=== PATIENT | male | born 1980 | race African-American/Black ===

== ENCOUNTER 2016-08-29 17:14 | Emergency (ER) | payer OTHER ==
[~2016-08-29] VITALS: Ht 177.8 cm; Wt 85.0 kg
[~2016-08-29 17:14] MED LIST: KEPP500 PO; PHEN100C4 PO
[2016-08-29] MEDS ORDERED: LEVETIRACETAM 1,000 MG in SODIUM CHLORIDE 0.9% 100 ML IV ONE (18:30)
[2016-08-29 18:53] LABS: CLARITY URINE CLEAR (CLEAR); COLOR URINE YELLOW (YELLOW); GLUCOSE URINE NEGATIVE (NEGATIVE); KETONES URINE TRACE (NEGATIVE); LEUKOCYTE ESTERASE URINE NEGATIVE (NEGATIVE); NITRITE URINE NEGATIVE (NEGATIVE); OCCULT BLOOD URINE NEGATIVE (NEGATIVE); PH URINE 5.5 (4.5-8.0); PROTEIN URINE TRACE (NEGATIVE); SPECIFIC GRAVITY URINE 1.029 (1.005-1.030)
[2016-08-29 19:13] LABS: *AMPHETAMINES SCREEN URINE PRESUMTIVE POSITIVE (NEGATIVE); *BARBITURATES SCREEN URINE NEGATIVE (NEGATIVE); *BENZODIAZEPINES SCREEN URINE NEGATIVE (NEGATIVE); *COCAINE SCREEN URINE NEGATIVE (NEGATIVE); CANNABINOID URINE SCREEN PRESUMTIVE POSITIVE (NEGATIVE); METHADONE URINE SCREEN NEGATIVE (NEGATIVE); OPIATES URINE SCREEN NEGATIVE (NEGATIVE); PHENCYCLIDINE URINE SCREEN NEGATIVE (NEGATIVE)
[2016-08-29 19:14] LABS: BASOPHILS % 0.7 % (0.0-2.0); EOSINOPHILS % 2.3 % (0.0-5.0); HEMATOCRIT. 41.9 % (42.0-52.0); HEMOGLOBIN. 13.5 g/dL (14.0-18.0); LYMPHOCYTES % 19.8 % (20.0-50.0); MEAN CORPUSCULAR HEMOGLOBIN 25.3 pg (28.0-32.0); MEAN CORPUSCULAR VOLUME 78.7 fL (80.0-94.0); MEAN PLATELET VOLUME 7.4 fl (7.4-10.4); MONOCYTES % 11.2 % (2.0-8.0); PLATELET 289 x1000/uL (130-400); RED BLOOD CELL COUNT 5.32 mill/uL (4.7-6.1); RED CELL DISTRIBUTION WIDTH 14.1 % (11.6-14.6)
[2016-08-29 19:19] LABS: CHLORIDE 104 mEq/L (98-107)
[2016-08-29 19:23] LABS: CARBON DIOXIDE 28 mEq/L (21-32)
[2016-08-29 19:26] LABS: ETHANOL BLOOD < 10 mg/dL
[2016-08-29 20:12] VITALS: BP 139/86
== END 2016-08-29 20:13 | disposition home or self-care (01) ==
LOC: ER 17:27
DX: G40.909 Epilepsy, unspecified, not intractable, without status epilepticus (principal); R51 Headache; R03.0 Elevated blood-pressure reading, without diagnosis of hypertension
CPT/HCPCS: 36415; 80053; 80305; 81001; 85025; 96365; 99284; G0482; J1953; J7050

== ENCOUNTER 2016-09-09 17:56 | Emergency (ER) | payer OTHER ==
[~2016-09-09] VITALS: Ht 190.5 cm; Wt 91.0 kg
[2016-09-09] MEDS ORDERED: HYDROCODONE/APAP 7.5/325MG 1 TAB TABLET PO ONE (18:45)
[2016-09-09] MEDS ORDERED: BACITRACIN ZINC OINT UDPKT TOP ONE (18:45)
[2016-09-09] MEDS ORDERED: TETANUS, DIPHTHERIA, PERTUSSIS VAC/PF 0.5ML (>7YR OLD) IM ONE (18:45)
[2016-09-09] MEDS ORDERED: LIDOCAINE HCL 1% 20ML VIAL (Pyxis) INJ MC ONE (18:45)
[2016-09-09 22:08] VITALS: BP 136/95
== END 2016-09-09 23:07 | disposition home or self-care (01) ==
LOC: ER 18:12
DX: S02.2XXA Fracture of nasal bones, initial encounter for closed fracture (principal); S01.81XA Laceration without foreign body of other part of head, initial encounter; Y08.89XA Assault by other specified means, initial encounter; Y93.89 Activity, other specified; Y92.89 Other specified places as the place of occurrence of the external cause; Y99.8 Other external cause status
CPT/HCPCS: 12052; 70450; 70486; 72125; 90471; 90715; 99284; A4217; J3490; Z7610